=== PATIENT | male | born 1975 | race Caucasian/White ===

== ENCOUNTER 2022-08-02 22:36 | Inpatient (IN) | payer SELFPAY ==
[2022-08-02 23:32] LABS: #Basophils 0.1 10x3/uL (0.0-0.2); #Eosinphils 0.2 10x3/uL (0.0-0.5); #Monocytes 0.7 10x3/uL (0.0-1.1); #Neutrophils 3.7 10x3/uL (1.5-8.4); %Basophils 0.7 % (0.0-2.0); %Eosinophils 2.8 % (0.0-6.0); %Lymphocytes 34.9 % (18.0-47.0); %Monocytes 9.2 % (0.0-10.0); %Neutrophils 52.3 % (40.0-75.0); Hemoglobin 16.9 g/dL (13.5-17.5); Mean Corpuscular HGB CONC 36.6 g/dL (32.0-36.0); Mean Corpuscular Hemoglobin 32.5 pg (27.0-33.0); Mean Corpuscular Volume 88.8 fl (81.2-95.1); Platelet Count 161 10x3/uL (150-450); RBC Distribution Width 12.7 % (11.5-14.5)
[2022-08-02] MEDS ORDERED: Labetalol HCl 100 MG/20 ML VIAL ONE (23:35)
[2022-08-02 23:39] LABS: Bilirubin Neg (Negative); Blood, Urine 250 (Negative); Clarity Bloody (Clear); Glucose, Urine (Dipstick) Normal (Negative); Ketone, Urine Negative (Negative); Leukocyte Negative (Negative); Nitrite Negative (Negative); Protein, Urine (Dipstick) 100 mg/dl (Neg-Trace); Urobilinogen Normal mg/dL (Less than 2)
[2022-08-02 23:45] LABS: RBC/HPF Greater than 50 HPF (0-3)
[2022-08-02 23:46] LABS: Bacteria/HPF Rare-Few HPF (None Seen); Squamous Epithelial None Seen HPF (0-3)
[2022-08-03] LABS: Anion Gap 15 mmol/L (10-20); BUN (Urea Nitrogen) 17 mg/dL (8.9-20.6); Calc. Creatinine Clearance 0 mL/min (70-130); Calcium 9.7 mg/dL (7.8-10.44); Carbon Dioxide 27 mmol/L (22-29); Chloride 104 mmol/L (98-107); Estimated GFR 103; Glucose 104 mg/dL (70-105); Magnesium 2.2 mg/dL (1.6-2.6); Potassium 3.6 mmol/L (3.5-5.1); Sodium 142 mmol/L (136-145)
[2022-08-03] MEDS ORDERED: hydrALAZINE 20 MG/ML VIAL ONE (00:41)
[2022-08-03] MEDS ORDERED: Nitroglycerin 0.4 MG TAB 1 EACH ONE (01:16)
[2022-08-03] MEDS ORDERED: Acetaminophen 325 MG TAB ONE (01:30)
[2022-08-03 02:49] LABS: Troponin I 0.021 ng/mL (< 0.028)
[2022-08-03] MEDS ORDERED: Aspirin Chewable 81 MG TAB ONE (03:17)
[2022-08-03] MEDS ORDERED: niCARdipine 25 MG/10 ML VIAL ONE (03:21)
[2022-08-03] MEDS ORDERED: Ondansetron PF 4 MG/2 ML Vial IVP PRN (03:28)
[2022-08-03] MEDS ORDERED: Calcium Carbonate 500 MG ChewTAB PO PRN (03:28)
[2022-08-03] MEDS ORDERED: Senokot S 8.6-50 MG TAB PO PRN (03:28)
[2022-08-03] MEDS ORDERED: Acetaminophen 325 MG TAB PO PRN (03:28)
[2022-08-03 04:29] LABS: SARS-CoV-2 NAA Rapid Test Not Detected (NotDetected)
[2022-08-03] MEDS: cefTRIAXone\\ROCEPHIN 1 GM in Sodium Chloride 0.9% 100 ML IVPB SCH (04:43)
[2022-08-03] MEDS ORDERED: niCARdipine 25 MG in Sodium Chloride 0.9% 250 ML 250 ML IVPB SCH (05:00)
[2022-08-03 05:19] LABS: Amphetamine Not Detected (NotDetected); Barbiturates Screen Not Detected (NotDetected); Benzodiazepine Screen Not Detected (NotDetected); Cocaine Metabolite Screen Not Detected (NotDetected); Methadone Not Detected (NotDetected); Methamphetamine Not Detected (NotDetected); Opiate Screen Not Detected (NotDetected); Oxycodone Screen Not Detected (NotDetected); Phencyclidine (PCP) Not Detected (NotDetected); THC/Cannabinoid Screen Detected (NotDetected); Tricyclic Screen Not Detected (NotDetected)
[2022-08-03 06:37] VITALS: BMI 33.2
[2022-08-03] MEDS: HYDROcodone/Acetaminophen 5/325 mg Tablet PO PRN ×3 (07:55→22:33)
[2022-08-03] MEDS: Lisinopril 20 MG TAB PO SCH (07:55)
[2022-08-03] MEDS ORDERED: Hydrochlorothiazide 25 MG TAB PO SCH (09:00)
[2022-08-03] MEDS ORDERED: Polyethylene Glycol 3350 17 GM Packet PO PRN (09:01)
[2022-08-03] MEDS ORDERED: NIFEdipine XL 30 MG TAB PO PRN (09:02)
[2022-08-03] MEDS ORDERED: Nicotine 14 MG PATCH TD PRN (09:09)
[2022-08-03] MEDS ORDERED: NIFEdipine XL 30 MG TAB PO SCH (10:00)
[2022-08-03] MEDS ORDERED: Acetaminophen 325 MG TAB PO SCH (10:00)
[2022-08-03 10:33] LABS: Anion Gap 12 mmol/L (10-20); BUN (Urea Nitrogen) 11 mg/dL (8.9-20.6); Calc. Creatinine Clearance 160 mL/min (70-130); Calcium 9.1 mg/dL (7.8-10.44); Carbon Dioxide 23 mmol/L (22-29); Chloride 101 mmol/L (98-107); Estimated GFR 110; Glucose 135 mg/dL (70-105); Potassium 2.9 mmol/L (3.5-5.1); Sodium 133 mmol/L (136-145)
[2022-08-03 10:38] LABS: #Basophils 0.1 10x3/uL (0.0-0.2); #Eosinphils 0.2 10x3/uL (0.0-0.5); #Monocytes 0.5 10x3/uL (0.0-1.1); #Neutrophils 4.6 10x3/uL (1.5-8.4); %Basophils 0.7 % (0.0-2.0); %Eosinophils 2.2 % (0.0-6.0); %Lymphocytes 21.2 % (18.0-47.0); %Monocytes 7.1 % (0.0-10.0); %Neutrophils 68.7 % (40.0-75.0); Hemoglobin 16.7 g/dL (13.5-17.5); Mean Corpuscular HGB CONC 36.1 g/dL (32.0-36.0); Mean Corpuscular Hemoglobin 31.8 pg (27.0-33.0); Mean Corpuscular Volume 88.2 fl (81.2-95.1); Mean Platelet Volume 11.5 fl (7.4-10.4); Platelet Count 157 10x3/uL (150-450); RBC Distribution Width 13.1 % (11.5-14.5); Red Blood Cell (RBC) Count 5.25 10x6/uL (4.32-5.72); White Blood Cell (WBC) Count 6.8 10x3/uL (3.5-10.5)
[2022-08-03 11:04] LABS: CKMB 1.8 ng/mL (0-6.6)
[2022-08-03] MEDS ORDERED: Potassium Chloride 20 MEQ TAB PO SCH ×2 (13:00→17:00)
[2022-08-03] MEDS ORDERED: Electrolyte Replacement Protocol 1 EACH FS SCH (13:00)
[2022-08-03 18:32] LABS: Potassium 3.4 mmol/L (3.5-5.1)
[2022-08-03 19:02] LABS: CKMB 1.7 ng/mL (0-6.6)
[2022-08-03] MEDS: Senokot S 8.6-50 MG TAB PO SCH ×2 (20:08→20:12)
[2022-08-04] MEDS: cloNIDine 0.1 MG TAB PO PRN ×2 (00:18→09:51)
[2022-08-04 04:36] LABS: #Basophils 0.1 10x3/uL (0.0-0.2); #Eosinphils 0.3 10x3/uL (0.0-0.5); #Monocytes 0.6 10x3/uL (0.0-1.1); #Neutrophils 3.3 10x3/uL (1.5-8.4); %Basophils 0.9 % (0.0-2.0); %Eosinophils 3.7 % (0.0-6.0); %Monocytes 8.9 % (0.0-10.0); %Neutrophils 48.2 % (40.0-75.0); Mean Corpuscular Hemoglobin 32.1 pg (27.0-33.0); Mean Corpuscular Volume 89.1 fl (81.2-95.1); Platelet Count 166 10x3/uL (150-450); RBC Distribution Width 12.9 % (11.5-14.5); White Blood Cell (WBC) Count 6.9 10x3/uL (3.5-10.5)
[2022-08-04 04:46] LABS: Anion Gap 15 mmol/L (10-20); BUN (Urea Nitrogen) 15 mg/dL (8.9-20.6); Calc. Creatinine Clearance 144 mL/min (70-130); Calcium 9.3 mg/dL (7.8-10.44); Carbon Dioxide 21 mmol/L (22-29); Chloride 107 mmol/L (98-107); Estimated GFR 103; Glucose 93 mg/dL (70-105); Potassium 3.7 mmol/L (3.5-5.1); Sodium 139 mmol/L (136-145)
[2022-08-04] MEDS: cefTRIAXone\\ROCEPHIN 1 GM in Sodium Chloride 0.9% 100 ML IVPB SCH (05:48)
[2022-08-04] MEDS ORDERED: Magnesium 2 GM/50 ML(in water) 2 GM in Premix Bag 1 BAG IVPB SCH (06:00)
[2022-08-04] MEDS ORDERED: FLU VACC QS2022-23(6MOS UP)/PF 60 MCG/0.5 ML SYRINGE IM ONE (07:00)
[2022-08-04] MEDS: HYDROcodone/Acetaminophen 5/325 mg Tablet PO PRN ×2 (08:29→13:55)
[2022-08-04] MEDS: Lisinopril 20 MG TAB PO SCH (08:34)
[2022-08-04] MEDS: Senokot S 8.6-50 MG TAB PO SCH (08:35)
[2022-08-04] MEDS ORDERED: NIFEdipine XL 30 MG TAB PO SCH ×2 (09:00→12:00)
[2022-08-04 14:30] VITALS: BP 149/94; TEMP 98
[2022-08-05] MEDS ORDERED: NIFEdipine XL 60 MG TAB PO SCH (09:00)
== END 2022-08-04 15:35 | disposition home or self-care (01) | DRG 305 ==
LOC: CSHERS 22:36 → CSHICU 08-03 04:10 → CSHTELE 08-03 22:19
PROVIDERS: ADMIT Student in an Organized Health Care Education/Training Program; ATTEND Internal Medicine
DX: I16.0 Hypertensive urgency (principal); I16.1 Hypertensive emergency; K92.1 Melena; I10 Essential (primary) hypertension; K64.8 Other hemorrhoids; F17.210 Nicotine dependence, cigarettes, uncomplicated; R31.0 Gross hematuria; E87.6 Hypokalemia; E66.9 Obesity, unspecified; Z20.822 Contact with and (suspected) exposure to COVID-19; Z79.899 Other long term (current) drug therapy; Z91.048 Other nonmedicinal substance allergy status; Z68.33 Body mass index [BMI] 33.0-33.9, adult; Z82.49 Family history of ischemic heart disease and other diseases of the circulatory system; Z71.6 Tobacco abuse counseling; Z98.890 Other specified postprocedural states; F12.10 Cannabis abuse, uncomplicated
CPT/HCPCS: 36415; 70450; 71045; 74176; 80048; 80306; 81003; 81015; 82274; 82553; 83735; 83880; 84484; 85025; 87086; 88112; 93005; 93306; 94760; 96361; 96365; 96375; J0360; J0696; J3475; J3490; U0002